=== PATIENT | male | born 1980 | race Caucasian/White ===

== ENCOUNTER 2022-08-04 14:29 | Emergency (ER) | payer MEDICAID, OTHER, SELFPAY ==
--- NOTE | ~2022-08-04 | XR_ITS ---
Indication: Fell on the stomach and throat EXAMINATION: Portable chest, 2 views soft tissue neck. The portable chest film shows grossly clear lungs. No convincing evidence for radiopaque foreign body. There is no effusion. Cardiac silhouette is within normal limits. The hilar structures are not enlarged. The soft tissue image of the neck demonstrate mild density in the subglottic region of the proximal esophagus. This could partially be calcification of cartilage. XR/XR chest 1V IMPRESSION: No acute finding in the chest. In the soft tissue neck there is density in the region of the subglottic esophagus which could in part be calcification of cartilage but foreign body here would need to be considered. This is from the level of C4-C5.
--- NOTE | ~2022-08-04 | XR_ITS ---
Indication: Fell on the stomach and throat EXAMINATION: Portable chest, 2 views soft tissue neck. The portable chest film shows grossly clear lungs. No convincing evidence for radiopaque foreign body. There is no effusion. Cardiac silhouette is within normal limits. The hilar structures are not enlarged. The soft tissue image of the neck demonstrate mild density in the subglottic region of the proximal esophagus. This could partially be calcification of cartilage. XR/XR soft tissue neck IMPRESSION: No acute finding in the chest. In the soft tissue neck there is density in the region of the subglottic esophagus which could in part be calcification of cartilage but foreign body here would need to be considered. This is from the level of C4-C5.
[2022-08-04 14:30] VITALS: BP 164/100; PULSE 84; RESP 18; TEMP 36.3; O2SAT 99; BMI 32.8
--- NOTE | 2022-08-04 16:48 | ED.GENADULT ---
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 Reports self induced emesis. Was able to drink water and eat a banana after incident, however still feels like there is something stuck in his throat. Denies SOB at present, cough, wheeze, chest pain, abdominal pain Onset (ago): hour(s) Related Data Allergies Allergy/AdvReac Type Severity Reaction Status Date / Time No Known Allergies Allergy Verified 08/04/22 15:51 Review of Systems Review of Systems: Constitutional: No Fever, No Chills, No Fatigue, No Malaise ENT/Mouth: No Ear Pain, No Nasal Congestion, No Sinus Pain, No Hoarseness, + sore throat, No Rhinorrhea, No Swallowing Difficulty Eyes: No Eye Pain, No Swelling, No Redness, No Vision Changes Cardiovascular: No Chest Pain, No SOB, No Dyspnea on Exertion, No Orthopnea, No Edema, No Palpitations Respiratory: No Cough, No Sputum, No Dyspnea Gastrointestinal: No Nausea, + self induce emesis, No Diarrhea, No Constipation, No Abdominal pain Genitourinary: No Dysuria, No Urinary Frequency, No Hematuria Musculoskeletal: No joint pain, No Myalgias, No Joint Swelling Skin: No Skin Lesions, No rash Neuro: No Weakness, No Numbness, No Paresthesias, No Loss of Consciousness, No Dizziness, No Headache Yes all other systems are reviewed and are negative Constitutional: Constitutional: Reports as per [facility] Past Medical History Attestation statement: The following information was validated with the patient. Social History Social History Advance Directives: No Advance Directives Information Provided: No Physical Exam ED Vital Signs: Vital Signs - 24 hr 08/04/22 14:30 Temperature 97.3 F Pulse Rate 84 Respiratory Rate 18 Blood Pressure 164/100 H Pulse Oximetry 99 BMI result Body Mass Index 32.8 Const General: cooperative, healthy appearing and no acute distress Orientation/consciousness: patient oriented x3 Limitations: no limitations HENMT Head: Yes normal to inspection and Yes atraumatic Ears: hearing grossly normal bilaterally General nose exam: Normal external nose present Face and sinus: Yes normal facial exam Mouth: Normal oral and palatal mucosa present and moist mucous membranes Throat: Yes posterior oropharynx normal, Yes tonsils normal, Yes uvula midline, No peritonsillar mass, No uvula laterally displaced and No uvular edema Eyes General: appearance normal, both eyes and all related structures EOM: EOMs intact bilaterally Neck Neck: Yes normal visual inspection and Yes no meningeal signs Resp Effort & Inspection: normal respiratory effort, able to speak in complete sentences, no grunting, not labored, no respiratory distress and no stridor Auscultation: clear to auscultation bilaterally, no crackles, no rales, no rhonchi and no wheezes Cardio Rate: regular rate Heart sounds: S1 normal heart sound present and S2 normal heart sound present GI Inspection: Yes normal to inspection Palpation (GI): Soft to palpation, nontender, no guarding and not rigid Skin Rashes: no rashes Wounds: no wounds Neuro General: patient oriented x3, tone normal and no meningeal signs Gait exam (Neuro): Normal gait present Extrem General: Yes normal to inspection Course Course Course Narrative: XR chest 1V/XR soft tissue neck IMPRESSION: No acute finding in the chest. ? In the soft tissue neck there is density in the region of the subglottic esophagus which could in part be calcification of cartilage but foreign body here would need to be considered. This is from the level of C4-C5. >>1813-- On re-evaluation patient reports symptomatic improvement, denies foreign body sensation. Is tolerating saltines and Lori gladys in the emergency department without difficulty. Recommended follow-up with GI Results discussed with patient including worrisome signs and symptoms and strict return precautions, and when to return to the emergency department. They verbalized understanding and feel safe for discharge at this time. Medical Decision Making MDM Narrative Medical decision making narrative: 41-year-old male with no significant past medical history presenting to the ED complaining of feeling like a piece of salami is stuck in his throat s/p eating salami MOTH PROOFER. on exam hypertensive, NAD, nontoxic appearing, talking in complete sentences, no respiratory distress, or pharynx WNL, no stridor, lungs CTA. Concern for laryngeal irritation vs ? food bolus. low suspicion for allergic reaction or strep pharyngitis plan: Neck soft tissue x-ray, CXR, p.o. challenge Medical Records Medical records reviewed: Yes I reviewed the patient's medical records. Lab Data Lab results reviewed: Yes I reviewed the patient's lab results. Discharge Plan Discharge Clinical Impression: Foreign body sensation in throat Patient Disposition: Home, Self-Care Additional Instructions: your x-ray shows a soft tissue neck density in the region of her subglottic esophagus which could be an area of your cartilage or possible foreign body. If you develop sensation at there was a foreign body in her throat, difficulty /inability to swallow, shortness of breath, wheezing return to the emergency department immediately You should follow-up with gastroenterology Referrals: [facility] – [place] G[facility] Services [Provider Group] - 2 days
== END 2022-08-04 18:40 | disposition home or self-care (01) ==
PROVIDERS: Emergency Provider Student in an Organized Health Care Education/Training Program; PCP Family Medicine
DX: R09.89 Other specified symptoms and signs involving the circulatory and respiratory systems (principal); R07.89 Other chest pain; M54.2 Cervicalgia
CPT/HCPCS: 70360; 71045; 99282; 99283

== ENCOUNTER 2024-11-26 11:14 | Outpatient (REF) | payer MEDICAID, OTHER, SELFPAY ==
--- OUTSIDE RECORDS SUMMARY | 2024-11-26 13:33 | XMS_ITS | Encounter Summary ---
Author Organization [employer] Address [address] [place] [address] Care Team Providers Care Lead Embedded Software Engineer Name Role Phone Unavailable Primary Care Provider Unavailabl e Reason for Visit * Reason Comments Pre-visit Planning SDOH Screening negat kaitlin and Tobacco screening negative Encounter Details Date Type Department Care Team ([facility] st Contact Info) Description 11/18/2024 Patient Outreach [facility] [address] [place], [place] [phone] Robina Jack MD [address] [place], [place] [phone] Pre-visit Planning (SDOH Screening negative and Tobacco screening negative) Social History Tobacco Use Types Packs/Day Years Used Date Smoking Tobacco: Never Assessed Housing Stability Answer Date Recorded What is your housing situation today? I have jyotifernanda stokes 12/07/[address] you li ve. Do you have problems with any of the following? None of the above 12/07/2023 Food Insecurity Answer Date Recorded Within the past 12 months, y ou worried that your food would run out before you got money to buy more: Never True 12/07/2023 Within the past 12 months,th e food you bought just didn't last and you didn't have enough money to get more: Never True Transportation Answer Date Recorded In the past 12 months, has l ack of transportation kept you from medical appts, meetings, work or from getting things needed for daily living? No 12/07/2023 Utilities Answer Date Recorded In the past 12 months, has t he electric, gas, oil or water company threatened to shut off services in your home? No 12/07/2023 Internet Access Answer Date Recorded Internet Access Q1 Yes 05/23/2024 Internet Access Q2 Not on file 05/23/2024 Sex and Gender Information Value Date Recorded Sex Assigned at Male 07/24/2022 10:20 AM EDT Legal Sex Male 10:20 AM EDT Gender Identity Male 07/24/2022 10:20 AM EDT Sexual Orientation Straight 07/24/2022 10 :20 AM EDT documented as of this encounter Progress Notes * Bere Taylor - 11/18/2024 11:17 AM EST MILADY Mccormick placed successful outbound call to patient for pre-visit planning. Patient name and confirmed. Patient confirms appt date and time, and has transportation arrangements. Biggest concern for appointment at this time is no concerns. Patient advised to bring to appointment a photo id and insurance card. Appropriate screenings completed in anticipation of appointment. documented in this encounter Plan of Treatment Not on file documented as of this encounter Visit Diagnoses Not on filedocumented in this encounter
--- OUTSIDE RECORDS SUMMARY | 2024-11-26 13:33 | XMS_ITS | Clinical Summary ---
Author Organization [employer] Address [address] [place] [address] Care Team Providers Care Store Deli Manager Name Role Phone Robina Jack MD Primary Care Provider Allergies No known active allergies Medications ciclopirox (Penlac) 8 % solution Apply topically at bedtime. 6 mL Active Active Problems Problem Noted Date Diagnosed Date Alcohol intake above recommended sensible limits 12/17/2022 Elevated blood-pressure read ing without diagnosis of hypertension 12/17/2022 Transaminitis 12/25/2016 Hypertriglyceridemia 12/25/2016 History of Helicobacter pylori infection 016 Umbilical hernia without obstruction and without gangrene 07/10/2016 Impaired fasting glucose 07/07/2013 Resolved Problems Problem Noted Date Diagnosed Date Resolved Date Essential hypertension 07/10/201612/17 Encounters Date Type Department Care Team Description 11/26/2024 10:30 AM EST Office Visit [facility] [address] [place] [phone] Robina Jack MD Routine general medical examination at a health care facility (Primary Dx); Elevated blood-pressure reading without diagnosis of hypertension; Umbilical hernia without obstruction and without gangrene; Impaired fasting glucose; Transaminitis; Hypertriglyceridemia; History of Helicobacter pylori infection; Alcohol intake above recommended sensible limits; Encounter for immunization; Screening for diabetes mellitus; Screening for lipid disorders; Routine screening for STI (sexually transmitted infection); Immunity status testing 11/26/2024 Travel 11/20/2024 Telephone [facility] [address] [place] [phone] Lesli De Guzman [place] chart prep 11/18/2024 Patient Outreach [facility] [address] [place] [address] Robina Jack MD Pre-visit Planning (SDOH Screening negative and Tobacco screening negative) from Last 3 Months Immunizations Name Administration Dates Next Due Hep B, adult 07/02/2017,03/08/2017,01/29/2017 Influenza injectable quadriv alent IIV4 with preservative 07/10/2018,07/02/2017,06/19/2016,2014 Influenza injectable quadriv alent preservative free 11/20/2022,08/04/2019 Influenza, IIV3, injectable 07/13/2014, 9 Influenza, Split (incl. maryellen f[place] antigen) 06/09/2013 Influenza, seasonal, injecta ble, preservative free 11/26/2024 Moderna Covid-19 Vaccine 12+ 03/07/2021,02/08/20 21 Tdap 03/24/2018,03/25/2012 Social History Tobacco Use Types Packs/Day Years Used Date Smoking Tobacco: Never Smokeless Tobacco: Never Tobacco Cessation:Counseling Given: Not Answered Depression Answer Date Recorded Patient Health Questionnaire-9 Score 0 11/26/2024 Patient Health Questionnaire-9 Score 0 11/26/2024 Last PHQ-9: Questionnaire Data Not on file 0 11/26/2024 Housing Stability Answer Date Recorded What is [...] off services in your home? No 12/07/2023 Depression Answer Date Recorded Patient Health Questionnaire-2 Score 0 11/26/2024 Internet Access Answer Date Recorded Internet Access Q1 Yes 05/23/2024 Internet Access Q2 Not on file 05/23/2024 Sex and Gender Information Value Date Recorded Sex Assigned at Male 07/24/2022 10:20 AM EDT Legal Sex Male 10:20 AM EDT Gender Identity Male 07/24/2022 10:20 AM EDT Sexual Orientation Straight 07/24/2022 10 :20 AM EDT Last Filed Vital Signs Vital Sign Reading Time Taken Comments Blood Pressure 128/88 11/26/2024 10:53 AM EST Pulse 87 11/26/2024 10:39 AM EST Temperature 36.3 ??C (97.3 ??F) 11/26/2024 10:[address] Respiratory Rate 16 11/26/2024 10:39 AM EST Oxygen Saturation 98% 11/26/2024 10:39 AM EST Inhaled Oxygen Concentration - - Weight 82.3 kg (181 lb 6.4 oz) 11/26/2024 10:39 AM EST Height 166.9 cm (5' 5.7 ) 11/26/2024 10:39 AM ES T Body Mass Index 29.55 11/26/2024 10:39 AM EST Plan of Treatment Health Maintenance Due Date Last Done Comments HIV Screening 1980 Family Planning (PISQ) 1995 Dental Oral Exam 10/15/2014 04/13/2014 Dental Prophylaxis 01/21/2015 07/22/2014 Dental X-Ray: Bitewings 04/14/2015 04/13/2014 Dental X-Ray: Full Mouth 04/14/2017 04/13/2014 COVID-19 Vaccine ( season) 2024 11/20/2021, 03/07/2021, 02/07/2021 SDOH Screening 11/18/2025 11/18/2024 Alcohol/Substance Use Screening 11/26/2025 11/26/2024 Depression Screening 11/26/2025 11/26/2024, 11/27/19 Tobacco Screening 11/26/2025 11/26/2024 Lipid Panel 04/11/2026 04/11/2021 DTaP/Tdap/Td Vaccines (3 - Td or Tdap) 03/24/2028 03/24/2018, 03/25/2012 Zoster Vaccines (1 of 2) 2030 RSV Patients and Patients Aged 60 years or older (1 - 1-dose 75+ series) 2055 Hepatitis B Vaccines Completed 07/02/2017, 03/08/2017, 01/29/2017 Hepatitis C Screening Completed 11/04/2019 Influenza Vaccine Completed 11/26/2024, , 08/04/2019, Additional history exists HIB Vaccines Aged Out No longer eligi ble based on patient's age to complete this topic HPV Vaccines Aged Out No longer eligi ble based on patient's age to complete this topic Hepatitis A Vaccines Aged Out No long er eligible based on patient's age to complete this topic IPV Vaccines Aged Out No longer eligi ble based on patient's age to complete this topic Meningococcal Vaccine Aged Out No delmi chintan eligible based on patient's age to complete this topic Pneumococcal Vaccine: Pediatrics (0 to 5 Years) and At-Risk Patients (6 to 49) Years) Aged Out No longer eligible based on patient's age to complete this topic RSV under 20 months Aged Out No longe r eligible based on patient's age to complete this topic Rotavirus Vaccines Aged Out No longer eligible based on patient's age to complete this topic Procedures Procedure Name Priority Date/Time Associated Diagnosis Comments LIPID PANEL, STANDARD Routine 04/11/2021 10:10 AM EDT ZZZ HISTORICAL HEPATITIS C ANTIBODY RFLX Routine 11/04/2019 11:56 AM EST PROPHYLAXIS - ADULT Routine 07/22/2014 1 2:00 AM EDT INTRAORAL - COMPLETE SERIES OF RADIOGRAPHIC IMAGES Routine 04/13/2014 12:00 AM EDT COMPREHENSIVE ORAL EVALUATION - NEW OR ESTABLISHED PATIENT Routine 04/13/2014 12:00 AM EDT from Last 3 Months or Most Recently Relevant to Health Maintenance Results * (ABNORMAL) LIPID PANEL, STANDARD (04/11/2021 10:10 AM EDT) Chol/HDLC Ratio 4.1 <5.0 (calc) [facility] Cholesterol, Total 207(H) <200 mg/dL [facility] HDL Cholesterol 51 > OR = 40 mg/dL [facility] LDL Cholesterol 136(H) mg/dL (calc) [facility] Comment: Reference range: <100 ?? Desirable range <100 mg/dL for primary prevention; ?? <70 mg/dL for patients with CHD or diabetic patients ?? with > or = 2 CHD risk factors. ?? LDL-C is now calculated using the Azeb ?? calculation, which is a validated novel method providing ?? better accuracy than the Friedewald equation in the ?? estimation of LDL-C. ?? Cabrera SEBASTIAN et al. ONIEL. 2013;310(19): 1039-1218 ?? (http://EpiGaN.Juice Wireless/faq/TSE696) Non-HDL Cholesterol 156(H) <130 mg/dL (calc) [facility] Comment: For patients with diabetes plus 1 major ASCVD risk ?? factor, treating to a non-HDL-C goal of <100 mg/dL ?? (LDL-C of <70 mg/dL) is considered a therapeutic ?? option. Triglycerides 97 <150 mg/dL [facility] 04/11/2021 10:1 0 AM EDT Robina Jack MD LAB BLOOD ORDERABLES Final Resul t Performing Organization Address [facility] Number [facility] [address] * HEPATITIS C ANTIBODY RFLX (11/04/2019 11:56 AM EST) HEPATITIS C ANTIBODY NONREACTIVE NONREACTIVE [facility] Comment: Antibodies to HCV not detected; does not exclude early acute HCV infection. 11/04/2019 11:5 6 AM EST Robina Jack MD HISTORICAL/NON ORDERABLE LABS Fi nal Result Performing Organization Address [facility] Phone Number [facility] [address] from Last 3 Months or Most Recently Relevant to Health Maintenance Insurance [place] [facility] MEDICAID LIMITED ADULT DENTAL - HSN FULL (MEDICAID) Care Teams Store Deli Manager Relationship Specialty Start Date End Date Robina Jack MD [address] [place] [phone] PCP - General Family Medicine 11/26/24
--- OUTSIDE RECORDS SUMMARY | 2024-11-26 13:33 | XMS_ITS | Encounter Summary ---
Author Organization [employer] Address [address] [place] [address] Care Team Providers Care Suction Operator Name Role Phone Robina Jack MD Primary Care Provider [phone] Encounter Details Date Type Department Care Team (Late st Contact Info) Description 11/26/2024 10:30 AM EST Office Visit [facility] [address] [place] [phone] Robina Jack MD [address] [place], [place] [phone] Routine general medical examination at a health care facility (Primary Dx); Elevated blood-pressure reading without diagnosis of hypertension; Umbilical hernia without obstruction and without gangrene; Impaired fasting glucose; Transaminitis; Hypertriglyceridemia; History of Helicobacter pylori infection; Alcohol intake above recommended sensible limits; Encounter for immunization; Screening for diabetes mellitus; Screening for lipid disorders; Routine screening for STI (sexually transmitted infection); Immunity status testing Social History Tobacco Use Types Packs/Day Years Used Date Smoking Tobacco: Never Smokeless Tobacco: Never Tobacco Cessation:Counseling Given: Not Answered Depression Answer Date Recorded Patient Health Questionnaire-9 Score 0 11/26/2024 Patient Health Questionnaire-9 Score 0 11/26/2024 Last PHQ-9: Questionnaire Data Not on file 0 11/26/2024 Housing Stability Answer Date Recorded What is your housing situation today? I have jyoti stokes 12/07/[address] you [...] AM EDT documented as of this encounter Last Filed Vital Signs Vital Sign Reading [...] Mass Index 29.55 11/26/2024 10:39 AM EST documented in this encounter Plan of Treatment Scheduled Orders Name Type Priority Associated Diagnoses Orde r Schedule Hemoglobin A1c Lab Routine Impaired fasting glucose Expected: 11/26/2024 (Approximate), Expires: 11/26/2025 Comprehensive Metabolic Panel Lab Routine Elevated blood-pressure reading without diagnosis of hypertension Transaminitis Expected: 11/26/2024 (Approximate), Expires: 11/26/2025 Lipid Panel with Reflex to Direct LDL Lab Routine Hypertriglyceridemia Expected: 11/26/2024 (Approximate), Expires: 11/26/2025 documented as of this encounter Visit Diagnoses Diagnosis Routine general medical examination at a health care facility- Primary Elevated blood-pressure reading without diagnosis of hypertension Elevated blood pressure reading without diagnosis of hypertension Umbilical hernia without obstruction and without gangrene Impaired fasting glucose Transaminitis Nonspecific elevation of levels of transaminase or lactic acid dehydrogenase (LDH) Hypertriglyceridemia Pure hyperglyceridemia History of Helicobacter pylori infection Alcohol intake above recommended sensible limits Encounter for immunization Screening for diabetes mellitus Screening for lipid disorders Routine screening for STI (sexually transmitted infection) Screening examination for venereal disease Immunity status testing Antibody response examination documented in this encounter Additional Health Concerns Assessment Noted Time PHQ-9 Depression Total Score: 0 11/27/19 10:43 AM EST documented as of this encounter Care Teams Suction Operator Relationship Specialty Start Date End Date Robina Jack MD [address] [place] [address] PCP - General Family Medicine 11/26/24 documented as of this encounter
--- OUTSIDE RECORDS SUMMARY | 2024-11-26 13:33 | XMS_ITS | Encounter Summary ---
Author Organization [employer] Address [address] [place] [address] Care Team Providers Care Chemist Steroids Name Role Phone Unavailable Primary Care Provider Unavailabl e Reason for Visit * Reason Onset Date Comments chart prep 11/20/2024 Encounter Details Date Type Department Care Team ([facility] st Contact Info) Description 11/20/2024 Telephone [facility] [address] [place] [address] Lesli De Guzman [place] chart prep Social History Tobacco Use Types Packs/Day Years Used Date Smoking Tobacco: Never Assessed Housing Stability Answer Date Recorded What is your housing situation today? I have jyoti kike 12/07/[address] you li [...] AM EDT documented as of this encounter Miscellaneous Notes * Telephone Encounter - Lesli De Guzman [place] - 11/20/2024 1:58 PM EST ..chart Prep Labs: not applicable Images: not applicable Vaccines due: Covid Due and Flu Due Referrals: Completed Screenings: Not Applicable Overdue care gaps: Sbirt and antonette-7 documented in this encounter Plan of Treatment Not on file documented as of this encounter Visit Diagnoses Not on filedocumented in this encounter
--- OUTSIDE RECORDS SUMMARY | 2024-11-26 13:33 | XMS_ITS | Encounter Summary ---
Author Organization [employer] Address [address] [facility] [address] [place] [address] Care Team Providers Care Mine Patrol Name Role Phone Robina Jack MD Primary Care Provider [phone] Robina Jack MD Primary Care Provider [phone] Encounter Details Date Type Department Care Team (Late st Contact Info) Description 10/23/2023 Orders Only [facility] MEDICINE [address] [place] [address] [phone] Robina Jack MD [address] [place] [address] Umbilical hernia without obstruction and without gangrene (Primary Dx) Social History Tobacco Use Types Packs/Day Years Used Date Smoking Tobacco: Never Assessed Sex and Gender Information Value Date Recorded Sex Assigned at Male 07/24/2022 10:20 AM EDT Legal Sex Male 10:20 AM EDT Gender Identity Male 07/24/2022 10:20 AM EDT Sexual Orientation Straight 07/24/2022 10 :20 AM EDT documented as of this encounter Plan of Treatment Not on file documented as of this encounter Visit Diagnoses Diagnosis Umbilical hernia without obstruction and without gangrene- Primary documented in this encounter Care Teams Mine Patrol Relationship Specialty Start Date End Date Robina Jack MD [address] [place], [place] [phone] PCP - General Family Medicine 10/23/23 06/03/24 Robina Jack MD [address] [place] [phone] PCP - General Family Medicine 11/26/24 documented as of this encounter
--- OUTSIDE RECORDS SUMMARY | 2024-11-26 13:33 | XMS_ITS | Encounter Summary ---
Author Organization [employer] Address [address] [place] [address] Care Team Providers Care Bilingual Executive Assistant Name Role Phone Robina Jack MD Primary Care Provider [phone] Encounter Details Date Type Department Care Team (Latest Contact Info) Description 11/26/2024 Travel Social History Tobacco Use Types Packs/Day Years Used Date Smoking Tobacco: Never Smokeless Tobacco: Never Depression Answer Date Recorded Patient Health Questionnaire-9 [...] Diagnoses Not on filedocumented in this encounter Additional Health Concerns Assessment Noted Time PHQ-9 Depression Total Score: 0 11/27/19 10:43 AM EST documented as of this encounter Care Teams Bilingual Executive Assistant Relationship Specialty Start Date End Date Robina Jack MD [address] [place] [phone] PCP - General Family Medicine 11/26/24 documented as of this encounter
[2024-11-26 13:53] LABS: Estimated Average Glucose 114 mg/dL; Hemoglobin A1C 150.3575 umol/L; Hemoglobin A1c % 5.6 % (<6.0); Total Hemoglobin (HGBA1C) 4029.1117 umol/L
[2024-11-26 14:10] LABS: Alanine Aminotransferase 129 U/L (0-40); Albumin Level 4.7 g/dL (3.5-5.0); Alkaline Phosphatase 64 U/L (39-117); Anion Gap 12 (12-20); Aspartate Amino Transferase 80 U/L (5-37); Bilirubin Total 0.5 mg/dL (0.0-1.0); Blood Urea Nitrogen 13 mg/dL (9-16); Calcium 9.4 mg/dL (8.4-10.2); Carbon Dioxide 26 mmol/L (22-29); Chloride 105 mmol/L (96-108); Cholesterol 237 mg/dL (<200); Estimated Glomerular Filt Rate > 60; Glucose Random 112 mg/dL (60-115); HDL Cholesterol 62 mg/dL (>40); LDL Cholesterol Calculated 153 mg/dL (<100); Potassium 4.3 mmol/L (3.3-5.1); Sodium 139 mmol/L (135-145); Total Protein 8.5 g/dL (6.5-8.0); Triglycerides 112 mg/dL (<150)
[2024-11-26 15:34] LABS: Reflex LDLD? No
== END 2024-11-26 11:15 | disposition home or self-care (01) ==
LOC: HO.HHCL 11:14
PROVIDERS: Visit Provider Family Medicine
DX: R03.0 Elevated blood-pressure reading, without diagnosis of hypertension (principal); R73.01 Impaired fasting glucose; R74.01 Elevation of levels of liver transaminase levels; E78.1 Pure hyperglyceridemia
CPT/HCPCS: 36415; 80053; 80061; 83036